=== PATIENT | male | born 1975 | race African-American/Black ===

== ENCOUNTER 2019-03-30 16:18 | Emergency (ER) | payer OTHER ==
[~2019-03-30] VITALS: Ht 177.8 cm; Wt 83.9 kg
[2019-03-30 16:45] LABS: ABSOLUTE NEUTROPHILS 4.4 thou/uL (1.4-8.2); BASOPHILS 1.1 % (0.0-2.0); EOSINOPHILS 2.4 % (0.0-3.0); HEMATOCRIT 45.8 % (42.0-52.0); HEMOGLOBIN 14.8 gm/dL (14.0-18.0); LYMPHOCYTES 46.1 % (24.0-44.0); MCHC 32.4 g/dL (28.0-37.0); MCV 89.6 fL (80.0-100.0); MONOCYTES 7.3 % (1.0-8.0); PLATELET COUNT 225 thou/uL (150-400); POLYS 43.1 % (36.0-66.0); RBC 5.11 mil/uL (4.50-6.00); RDW 13.6 % (10.5-14.5); WBC 10.3 thou/uL (4.0-11.0)
[2019-03-30 16:59] LABS: ANION GAP 11 mmol/L (7-16); BUN 21 mg/dL (7-18); CALCIUM 9.2 mg/dL (8.5-10.1); CHLORIDE 107 mmol/L (98-107); CO2 27 mmol/L (21-32); CREATININE 1.3 mg/dL (0.7-1.3); GLUCOSE 107 mg/dL (74-106); POTASSIUM 3.7 mmol/L (3.5-5.1); SODIUM 145 mmol/L (136-145)
--- NOTE | 2019-03-30 17:09 | EKG ---
[address] [address] ELECTROCARDIOGRAM REPORT Name: SHAUN LACY Room #: [facility]..#: [id number] ������������������ Admission: ������������������ Attend Phys: Discharge: ������������������ Date of : 73 Report #: [id number] ����������������������������������������������������������������� [id number] THIS REPORT FOR: //name// [facility] ED Test Date: 2019-03-30 Test Time: 16:29:16 Pat Name: SHAUN LACY Department: Room: Gender: Head Of Store Operations: cony : 1975 Requested By: Nidhi Wise Order Number: [id number] MD: Mir Anton Measurements Intervals [place] Rate: 181 P: 0 DC: QRS: 53 QRSD: 75 T: 15 QT: 278 QTc: 483 Interpretive Statements Supraventricular tachycardia Minimal ST depression, inferior leads Baseline wander in lead(s) II,III,aVF No previous ECG available for comparison Electronically Signed On 03-30-2019 17:09:13 CDT by Mir Anton [email or web address] ��������������������������������������������� <ELECTRONICALLY SIGNED> ���������������������������������������� By: Mir Anton MD ��������������������������������������������� 03/30/19 1709 1629 1629 MD DANIELLE Farley
[2019-03-30 17:10] LABS: SGOT 44 U/L (15-37); SGPT 48 U/L (30-65); TOTAL BILIRUBIN 0.4 mg/dL (<0.1-1.0); TOTAL PROTEIN 7.9 g/dL (6.4-8.2); TROPONIN-I <0.06 ng/mL (<0.06)
--- NOTE | 2019-03-30 17:10 | EKG ---
[address] [place] [address] ELECTROCARDIOGRAM REPORT Name: SHAUN LACY Room #: [facility]..#: [id number] ������������������ Admission: ������������������ Attend Phys: Discharge: ������������������ Date of : 73 Report #: [id number] ����������������������������������������������������������������� [id number] THIS REPORT FOR: //name// [facility] ED Test Date: 2019-03-30 Test Time: 16:33:16 Pat Name: SHAUN LACY Department: Room: Gender: Extender: cony : 1975 Requested By: Nidhi Wise Order Number: [id number] MD: Mir Anton Measurements Intervals [place] Rate: 85 P: 57 NE: 147 QRS: 29 QRSD: 81 T: 53 QT: 354 QTc: 421 Interpretive Statements Sinus rhythm Probable left atrial enlargement Baseline wander in lead(s) II,III,aVF,V1 No previous ECG available for comparison Electronically Signed On 03-30-2019 17:09:57 CDT by Mir Anton [email or web address] ��������������������������������������������� <ELECTRONICALLY SIGNED> ���������������������������������������� By: Mir Anton MD ��������������������������������������������� 03/30/19 1709 1633 1633 MD DANIELLE Farley
[2019-03-30 17:32] LABS: URINE BILIRUBIN NEGATIVE (Negative); URINE BLOOD TRACE (Negative); URINE CLARITY CLEAR; URINE COLOR YELLOW; URINE GLUCOSE-RANDOM* NEGATIVE (Negative); URINE KETONES NEGATIVE (Negative); URINE LEUKOCYTES-REFLEX NEGATIVE (Negative); URINE NITRITE-REFLEX NEGATIVE (Negative); URINE PROTEIN (DIPSTICK) NEGATIVE (Negative); URINE SPECIFIC GRAVITY <= 1.005 (1.005-1.035); URINE UROBILINOGEN 0.2 E.U./dl (0.2-1.0)
[2019-03-30 17:48] LABS: AMP/METHAMP Negative (Negative); BARBITURATES Negative (Negative); BENZODIAZEPINES Negative (Negative); COCAINE Negative (Negative); METHADONE Negative (Negative); OPIATES Negative (Negative); PCP Negative (Negative)
[2019-03-30 18:10] VITALS: BP 149/94
== END 2019-03-30 18:32 | disposition home or self-care (01) ==
LOC: ER 16:18
PROVIDERS: Student in an Organized Health Care Education/Training Program
DX: I47.1 Supraventricular tachycardia (principal); F17.210 Nicotine dependence, cigarettes, uncomplicated